=== PATIENT | female | born 1995 | race Two or more races ===

== ENCOUNTER 2022-10-28 13:59 | Emergency (ER) | payer OTHER ==
[~2022-10-28] VITALS: Ht 175.3 cm; Wt 63.5 kg
--- NOTE | 2022-10-28 14:20 | NUR ---
DR SPRING AT BEDSIDE FOR EVAL
--- NOTE | 2022-10-28 14:21 | NUR ---
PT WALKED IN C/O LEFT EAR PAIN X 3 DAYS WITH "MUFFLED" HEARING. PT DENIES VERTIGO OR ANY DISCHARGE FROM THE EAR. PT AMBULATED TO BED WITH STEADY GAIT. VSS.
[2022-10-28] MEDS ORDERED: LIDO30CR TP (14:28)
[2022-10-28] MEDS ORDERED: OFLO5DRO5 LEFT EAR (14:28)
--- NOTE | 2022-10-28 14:37 | NUR ---
Patient discharged to home in stable condition. Written and verbal after care instructions given. Patient verbalizes understanding of instruction.
[2022-10-28 14:40] VITALS: BP 110/70
== END 2022-10-28 14:41 | disposition home or self-care (01) ==
LOC: ER 14:09
DX: H60.92 Unspecified otitis externa, left ear (principal); Z79.899 Other long term (current) drug therapy

== ENCOUNTER 2024-06-23 14:53 | Emergency (ER) | payer OTHER ==
[~2024-06-23] VITALS: Ht 175.3 cm; Wt 65.8 kg
[~2024-06-23 14:53] MED LIST: LIDO30CR TP; OFLO5DRO5 LEFT EAR
[2024-06-23 16:22] LABS: BASOPHILS % (AUTO) 0.8 % (0.0-2.0); EOSINOPHILS # (AUTO) 0.2 K/uL (0.0-0.7); EOSINOPHILS % (AUTO) 3.8 % (0.0-6.0); HEMATOCRIT 41 % (33-45); LYMPHOCYTES # (AUTO) 2.1 K/uL (0.8-4.8); LYMPHOCYTES % (AUTO) 39.1 % (20.0-44.0); MEAN CORPUSCULAR HEMOGLOBIN 32 PG (26.0-33.0); MEAN CORPUSCULAR HGB CONC 35 g/dl (31.0-36.0); MEAN CORPUSCULAR VOLUME 91 fL (82-100); MONOCYTES # (AUTO) 0.5 K/uL (0.1-1.30); NEUTROPHILS # (AUTO) 2.5 K/uL (1.8-8.9); NEUTROPHILS % (AUTO) 46.3 % (43.0-81.0); PLATELET COUNT (AUTO) 213 K/uL (150-450); RED BLOOD CELL COUNT(AUTO) 4.43 MIL/uL (4.0-5.2); RED CELL DISTRIBUTION WIDTH 13.2 % (11.5-15.0); WHITE BLOOD COUNT (AUTO) 5.4 K/uL (4.3-11.0)
[2024-06-23 16:30] LABS: CALCIUM, SERUM 9.2 mg/dL (8.5-10.1); CARBON DIOXIDE 29 mmol/L (21-32); CHLORIDE 104 mmol/L (98-107); CREATININE 0.7 mg/dL (0.6-1.3); GLUCOSE 86 mg/dL (74-106); POTASSIUM 3.7 mmol/L (3.5-5.1); SODIUM SERUM 140 mmol/L (136-145); UREA NITROGEN, BLOOD 13 mg/dL (7-18)
[2024-06-23 16:36] LABS: ALANINE AMINOTRANSFERASE 11 U/L (12-78); ALBUMIN 3.8 g/dL (3.4-5.0); ALKALINE PHOSPHATASE 55 U/L (46-116); ASPARTATE AMINOTRANSFERASE 10 U/L (15-37); BILIRUBIN,TOTAL 0.3 mg/dL (0.2-1.0); TOTAL PROTEIN, SERUM 7.2 g/dL (6.4-8.2)
[2024-06-23 16:45] LABS: C-REACTIVE PROTEIN < 0.20 mg/dL (0.0-0.30)
[2024-06-23 16:56] LABS: APPEARANCE,URINE SLIGHTLY CLOUDY (CLEAR); BILIRUBIN,URINE NEGATIVE (NEGATIVE); BLOOD, URINE TRACE-INTA Ery/uL (NEGATIVE); COLOR,URINE YELLOW (YELLOW); KETONES,URINE NEGATIVE (NEGATIVE); LEUKOCYTE ESTERASE ,URINE 3+ (NEGATIVE); NITRITE, URINE NEGATIVE (NEGATIVE); PH,URINE 6.5 (5.0-8.0); PROTEIN,URINE NEGATIVE (NEGATIVE); UGLUCOSE NEGATIVE (NEGATIVE); UROBILINOGEN,URINE 0.2 EU/dL (0.2)
[2024-06-23 16:57] LABS: INR 0.96 (0.91-1.10); PARTIAL THROMBOPLASTIN TIME 23.9 SEC (24.3-34.3); PROTHROMBIN TIME 10.2 SECS (9.2-11.1)
[2024-06-23 17:00] LABS: PREGNANCY TEST URINE QUAL NEGATIVE (NEGATIVE)
[2024-06-23 17:02] LABS: ERYTHROCYTE SEDIMENTATION RATE < 1 MM/HR (0-20)
[2024-06-23 17:11] LABS: ADD URINE CULTURE YES; BACTERIA,URINE 2+ /HPF (None Seen); WBC,URINE 51-80 /HPF (0-3)
[2024-06-23] MEDS ORDERED: NITR100C6 PO (17:43)
[2024-06-23 17:49] VITALS: BP 129/82; TEMP 98.1; O2SAT 100
== END 2024-06-23 17:49 | disposition home or self-care (01) ==
LOC: ER 14:53
DX: N39.0 Urinary tract infection, site not specified (principal); R53.83 Other fatigue; R58 Hemorrhage, not elsewhere classified; R53.1 Weakness
CPT/HCPCS: 36415; 80053-TC; 81001; 84439-TC; 84443-TC; 84703-TC; 85025-TC; 85652-TC; 85730-TC; 86140-TC; 87086-TC

== ENCOUNTER 2025-06-07 13:16 | Emergency (ER) | payer OTHER ==
[~2025-06-07] VITALS: Ht 175.3 cm; Wt 63.5 kg
[~2025-06-07 13:16] MED LIST changes: +NITR100C6 PO
[2025-06-07 13:29] VITALS: BP 121/81; TEMP 98.2
[2025-06-07] MEDS ORDERED: IBUPROFEN 400 MG TABLET ONE (14:12)
[2025-06-07] MEDS: IBUPROFEN 400 MG TABLET PO ONE (14:19)
[2025-06-07 15:28] VITALS: O2SAT 97
== END 2025-06-07 15:29 | disposition home or self-care (01) ==
LOC: ER 13:16
DX: M25.572 Pain in left ankle and joints of left foot (principal); Z79.899 Other long term (current) drug therapy
CPT/HCPCS: 73610-TC